=== PATIENT | female | born 1985 | race Caucasian/White ===

== ENCOUNTER → 2018-04-07 | Day surgery (SDC) | payer SELFPAY ==
[2018-03-23 11:46] VITALS: BMI 34.0
[2018-03-23 13:11] LABS: HEMATOCRIT 30.7 % (37-47); HEMOGLOBIN 8.6 g/dL (12.0-16.0); MEAN CELL VOLUME 62.7 fL (80-100); MEAN CORPUSCULAR HEMOGLOBIN 17.6 pg (25-34); PLATELET COUNT 271 K/uL (130-400); RED CELL DISTRIBUTION WIDTH CV 19.2 % (11.5-14.5); WHITE BLOOD COUNT 6.34 K/uL (4.8-10.8)
[2018-03-23 14:56] LABS: CALCIUM 8.6 mg/dl (8.5-10.1); CREATININE 0.51 mg/dl (0.60-1.20)
[~2018-04-07] VITALS: Ht 152.4 cm; Wt 80.0 kg
[~2018-04-07] MED LIST: ACET-1256 PO; ATROPINE SULFATE 0.1 MG/ML 5ML SYR IV PRN; CIPR1TAB10 PO; CIPROFLOXACIN / D5W 400 MG IV SCH; CRS/10 PO; Cysto-Conray II 17.2% 250ML BOTTLE ONE; DEXAMETHASONE SOD INJ 4 MG/ML VIAL ONE; EpHEDrine SULFATE INJ 50 MG/ML AMP IV PRN; FENTANYL CITRATE INJ 50 MCG/1 ML 2 ML VIAL ONE; HYDROmorphone INJ 2 MG/ML SYR/VIAL IV PRN; IRON PO; LACTATED RINGER'S 1000ML 1,000 ML IV SCH; LIDOCAINE HCL 2% 2 ML VIAL (20MG/ML) ONE; METF1TAB53 PO; MIDAZOLAM HCL 1 MG/ML 2ML VIAL ONE; ONDANSETRON INJ 2 MG/ML 2 ML VIAL IV PRN; ONDANSETRON INJ 2 MG/ML 2 ML VIAL ONE; OXYCODONE/ACETAMINOPHEN 7.5-325 TAB PO PRN; PHEN-775 PO; PHENYLEPHRINE 100MCG/ML 5ML SYR IV PRN; PROPOFOL IV EMULSION 10 MG/ML 20 ML VIAL ONE
[2018-04-07 06:10] VITALS: BP 156/87; PULSE 93; TEMP 37.1; O2SAT 98; Ht 152.4 cm; Wt 80.0 kg
--- NOTE | 2018-04-07 07:03 | History & Physical Bridge Note ---
H&P Re-Evaluation Bridge Note: I have examined the patient, reviewed the History & Physical and in the interval since the performance of the History & Physical I have noted the following changes of clinical significance: No changes noted
--- NOTE | 2018-04-07 07:12 | Discharge Instructions ---
Discharge Instructions Date of Service April 07, 2018. Admission Reason for Admission: Hematuria, Bladder Lesion Discharge Discharge Diagnosis / Problem: Hematuria Discharge Goals Goal(s): Decrease discomfort, Improve function Activity Recommendations Activity Limitations: resume your previous activity Lifting Limitations: gradually increase as tolerated Exercise/Sports Limitations: gradually increase as tolerated Shower/Bathe: no limitations . Instructions / Follow-Up Instructions / Follow-Up May have blood in urine. May have pelvic discomfort. Call if any issues. Current Hospital Diet Patient's current hospital diet: Discharge Diet Recommended Diet: Regular Diet Procedures Procedures Performed: Cystoscopy with Retrogrades Pending Studies Studies pending at discharge: no Medical Emergencies . Who to Call and When: Medical Emergencies: If at any time you feel your situation is an emergency, please call 911 immediately. . Non-Emergent Contact Non-Emergency issues call your: Primary Care Provider, Urologist Call Non-Emergent contact if: you have a fever, temperature is above 101, temperature is above 101.5, your pain is not controlled, your pain is worsening , wound has increased drainage, wound has increased redness . . "Provider Documentation" section prepared by Boubacar Gaviria. .
--- NOTE | 2018-04-07 07:36 | [facility] Operative Report ---
Operative Report Operative Date April 07, 2018. Pre-Operative Diagnosis Hematuria Post-Operative Diagnosis Same Procedure(s) Performed Cystoscopy with bilateral Retrograde pyelograms Surgeon Everette Estimated Blood Loss Minimal Drains None Anesthesia Type MAC Complication(s) none Disposition Recovery Room / PACU Indications Recurrent Gross hematuria with unknown source. Risks and benefits discussed at length. Description of Procedure Patient was consented and brought back to the operating room. Patient was placed under anesthesia in the supine position and moved to the dorsal lithotomy position. Patient was prepped and draped in the regular sterile fashion. A time out was completed. A 30degree Cystoscope was placed into the bladder and the entire bladder was examined. The UO's were identified. NO masses, lesions, or other areas of concern were noted. 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 No obvious ureterocele. The bladder did have moderate hypervascularity and glomerulation after distension. Each side was cannulized with a catheter and a retrograde pyelogram was completed. The bladder was emptied. The scope was removed. The patient was cleaned, aroused from anesthesia, and transferred to the pacu in stable condition having tolerated the procedure well with no complications. I was present and participated in all aspects of the procedure. The patient will be monitored in the PACU until transferred. I attest to the content of the Intraoperative Record and any orders documented therein. Any exceptions are noted below.
--- NOTE | 2018-04-07 08:05 | DIAGNOSTIC IMAGING REPORT ---
RETROGRADE INCLUDES KUB CLINICAL HISTORY: CYSTOSCOPY, BILATERAL RETROGRADE hematuria COMPARISON STUDY: Renal ultrasonography dated 10/28/2017 FINDINGS: 18 seconds of fluoroscopic time was utilized. 5 intraoperative fluoroscopic spot images are provided for interpretation. No collecting system or ureteral lesions are visualized. IMPRESSION: No collecting system or ureteral lesions are visualized Electronically signed by: Ghanshyam De Oliveira M.D. 04/07/2018 8:04 AM Dictated Date/Time: 04/07/2018 8:03 AM
[2018-04-07 08:32] VITALS: BP 128/78; PULSE 84; TEMP 36.7; O2SAT 96
--- NOTE | 2018-04-07 08:57 | Anesthesiology Progress Note ---
Anesthesia Post Op Note Date & Time April 07, 2018 at 08:57 Vital Signs Pain Intensity: 5 Vital Signs Past 12 Hours Date Time Temp Pulse Resp B/P (MAP) Pulse Ox O2 Delivery O2 Flow Rate FiO2 04/07/18 08:32 36.7 84 18 128/78 96 Room Air 04/07/18 08:20 88 18 118/77 96 Room Air 04/07/18 08:10 36.4 85 18 121/77 97 Room Air 04/07/18 08:00 81 18 113/64 100 Oxymask 3 04/07/18 07:50 78 18 111/69 100 Oxymask 5 04/07/18 07:44 36.4 83 16 108/57 100 Oxymask 10 04/07/18 06:10 37.1 93 18 156/87 (110) 98 Room Air Notes Mental Status: alert / awake / arousable, participated in evaluation Pt Amnestic to Procedure: Yes Nausea / Vomiting: adequately controlled Pain: adequately controlled Airway Patency, RR, SpO2: stable & adequate BP & HR: stable & adequate Hydration State: stable & adequate Anesthetic Complications: no major complications apparent
[2018-04-07 09:02] VITALS: BP 126/73; PULSE 84; TEMP 36.6; O2SAT 97
== END | disposition home or self-care (01) ==
LOC: C.ACU 05:47
PROVIDERS: ATTEND Urology
DX: R31.0 Gross hematuria (principal); N32.9 Bladder disorder, unspecified; E78.00 Pure hypercholesterolemia, unspecified; E66.9 Obesity, unspecified; Z68.34 Body mass index [BMI] 34.0-34.9, adult; E11.9 Type 2 diabetes mellitus without complications; Z79.84 Long term (current) use of oral hypoglycemic drugs; Z83.3 Family history of diabetes mellitus; Z82.49 Family history of ischemic heart disease and other diseases of the circulatory system